=== PATIENT | male | born 1980 | race Caucasian/White ===

== ENCOUNTER → 2020-06-01 15:27 | Outpatient (CLI) | payer OTHER, SELFPAY ==
--- NOTE | ~2020-06-01 | MR_ITS ---
EXAMINATION: MR thoracic spine wo con EXAM DATE: 06/01/2020 16:04 INDICATION: Thoracic pain. TECHNIQUE: Multi-sequential, multiplanar MR images of the thoracic spine were obtained without contra st. Sagittal T1, T2, T2 fat saturation, axial T2 weighted images reviewed. There is no prior study for comparison. FINDINGS: The vertebral bodies are aligned in the AP dimension. The spinal cord signal intensity and intrinsic morphology is normal. Several hemangiomas, largest within T3. There is mild mid and lower thoracic disc disease and facet arthropathy. Thoracic central canal, neural foramen widely patent. IMPRESSION: Mild thoracic spondylosis. Reviewed, dictated and finalized at location B. [facility] [facility] IMPRESSION: Mild thoracic spondylosis.
== END ==
PROVIDERS: PCP Physician Assistant Medical; Visit Provider Physician Assistant Medical
DX: M54.6 Pain in thoracic spine (principal); M47.814 Spondylosis without myelopathy or radiculopathy, thoracic region
CPT/HCPCS: 72146

== ENCOUNTER 2023-02-21 07:34 | Day surgery (SDC) | payer OTHER, SELFPAY ==
[2023-02-21 09:01] VITALS: BMI 26.6
--- NOTE | 2023-02-21 09:18 | PM.HPGS ---
History of Present Illness History of Present Illness Consent: Risks, benefits, and alternatives have been discussed and questions answered. Patient agrees to proceed with procedure. Chief complaint: Gerd Narrative: Sukumar Andrea is a 42 year old male Presents for EGD. Patient reports over the last several years has had heartburn and acid regurgitation. He has taken omeprazole 20mg p.o. daily for some time. Earlier this year symptoms seem to intensify and he has taken 40mg p.o. daily for several months. He states initially this improved but symptoms have been inconsistent. He occasionally will have breakthrough heartburn. Patient denies any dysphagia or weight loss. He has had no bleeding. Patient presents today for EGD to assess more thoroughly. Review of Systems Review of Systems: Review of systems noncontributory. [facility] Past Medical History Medical History Anxiety Psoriasis Family History Family History Father Hypertension Family history of malignant neoplasm Lung cancer Mother Hypertension Sibling Hypertension Social History Social History Smoking packs per day: 1 Smoking cigarettes per day: 20.0 Smoking status: Current some day smoker Tobacco type: cigarettes Additional smoking assessment comments: 5 cigarettes per week Alcohol intake: current Drinks per week: 5 Substance use: never Substance use type: does not use Lack of Transportation: No Lack of Food: Never True Current Housing: I Have Housing Concerned About Future Housing: No Difficulty Paying Gas/Electric Bills: No Difficulty Paying for Meds: No Currently Unemployed: No Difficulty w/ Childcare or Family Care: No Living arrangements: with family Occupation/Education: occupation 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 Vital signs stable. HEENT exam is unremarkable. Patient is anicteric. Lungs are clear to auscultation and percussion. Heart is without murmur or extra sounds. Abdomen bowel sounds are present soft nontender with no hepatosplenomegaly. Assessment and Plan Assessment and plan (1) Dyspepsia: Code(s): R10.13 - Epigastric pain Status: Acute Assessment and Plan: Patient with dyspeptic symptoms of epigastric pain And acid regurgitation.. only partially responsive to acid suppression. Plan for EGD to assess more thoroughly. (2) GERD (gastroesophageal reflux disease): Qualifiers: Esophagitis presence: without esophagitis Qualified Code(s): K21.9 - Gastro-esophageal reflux disease without esophagitis Code(s): K21.9 - Gastro-esophageal reflux disease without esophagitis Status: Acute Assessment and Plan: Patient with symptoms of acid reflux. Symptoms are only partially responsive to PPI acid suppression. Symptoms recur intermittently. Plan for EGD to assess more thoroughly.
--- NOTE | 2023-02-21 09:28 | WPDANESEPPF ---
Anes - Initial Pre Proc Eval Procedure: Operation Date: 02/21/23 10:00 Proposed Procedures p Esophagogastroduodenoscopy - Nabil Aguilar MD Date/Time: 02/21/23 09:28 Surgeon: Nabil Aguilar MD Pre Op Diagnosis: Gerd Patient Data Age: 42 Gender: M Height: 1.85 m Weight: 91.7 kg Allergies Allergy/AdvReac Type Severity Reaction Status Date / Time No Known Allergies Allergy Verified 02/21/23 08:48 Home Medications Medication Instructions Recorded Confirmed Type omeprazole 40 mg capsule,delayed 40 mg PO DAILY #90 caps 11/09/22 02/21/23 Rx release citalopram 20 mg tablet 20 mg PO DAILY #30 tabs 02/12/23 02/21/23 Rx Patient hx anesthesia problems: none Family hx anesthesia problems: none Results Review: All pre-operative results and documents have been reviewed as part of the pre-operative evaluation. [facility] Past Medical History Medical History Anxiety Psoriasis Family History Family History Father Hypertension Family history of malignant neoplasm Lung cancer Mother Hypertension Sibling Hypertension Social History Social History Smoking packs per day: 1 Smoking cigarettes per day: 20.0 Smoking status: Current some day smoker Tobacco type: cigarettes Additional smoking assessment comments: 5 cigarettes per week Alcohol intake: current Drinks per week: 5 Substance use: never Substance use type: does not use Lack of Transportation: No Lack of Food: Never True Current Housing: I Have Housing Concerned About Future Housing: No Difficulty Paying Gas/Electric Bills: No Difficulty Paying for Meds: No Currently Unemployed: No Difficulty w/ Childcare or Family Care: No Living arrangements: with family Occupation/Education: occupation 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 [employer] Gender identity (if verbalized by the patient): Male Sexual Orientation (if Verbalized by the Patient): Straight or Heterosexual Spiritual care concerns: No Anes - Eval Final PreProcedure Day of Procedure 02/21/23 09:28 Patient weight: normal Heart: regular rate and rhythm Lungs: clear to auscultation Airway: Mallampati scale class II Neurological: alert and oriented Last oral intake: >/= 8 hours ASA classification: II Emergent: no Anesthetic plan: proceed Anesthesia type and monitoring: general GIVS and standard monitoring Results Review: All pre-operative results and documents have been reviewed as part of the pre-operative evaluation. Informed Consent: The patient's anesthetic plan and its attendant risks and benefits were discussed with the patient/family/POA. Questions were solicited and answers provided to the satisfaction of the patient/family/POA.
[2023-02-21] MEDS: LACTATED RINGERS 1,000 ML 150 ML IV CONT (09:36)
[2023-02-21 10:07] VITALS: BP 135/96; PULSE 77; RESP 20; O2SAT 100
[2023-02-21 10:17] VITALS: BP 129/93; PULSE 70; RESP 18; O2SAT 99
[2023-02-21 10:27] VITALS: BP 119/86; PULSE 65; RESP 16; O2SAT 98
--- NOTE | 2023-02-21 13:17 | WPDANESPN ---
Anes - Prog Note Post-Op Date/Time: 02/21/23 13:17 Cardiovascular status: normal Respiratory status: normal Airway patency: baseline Mental status: baseline Post-Op hydration status: normal Vital Signs: Last Vital Signs Pulse 65 02/21/23 10:27 Resp 16 02/21/23 10:27 BP 119/86 02/21/23 10:27 Pulse Ox 98 02/21/23 10:27 O2 Del Method Room Air 02/21/23 10:27 Pain Score (VAS): 0 I/O: Intake & Output 02/20/23 02/21/23 02/21/23 23:59 07:59 15:59 Intake Total 700 Balance 700 Patient Feedback: Patient satisfied with anesthetic care.
--- NOTE | 2023-02-22 08:16 | SUR.PHASEII ---
Pt called and asked for a work release for yesterday. Faxed to pt.
== END 2023-02-21 10:41 | disposition home or self-care (01) ==
PROVIDERS: PCP Physician Assistant Medical; Visit Provider Internal Medicine Gastroenterology
PROC: 0DJ08ZZ Inspection of Upper Intestinal Tract, Via Natural or Artificial Opening Endoscopic (ICD-10-PCS; CPT 43235; principal; 2023-02-21 10:00)
DX: R13.19 Other dysphagia (principal); K21.9 Gastro-esophageal reflux disease without esophagitis
CPT/HCPCS: 43239

== ENCOUNTER 2023-02-21 08:46 | Outpatient (NON) | payer OTHER, SELFPAY | END 2023-02-21 08:47 | disposition home or self-care (01) | LOC: ANHLAB 02-22 08:48 | PROVIDERS: PCP Physician Assistant Medical; Visit Provider Internal Medicine Gastroenterology | DX: K21.9 Gastro-esophageal reflux disease without esophagitis (principal) | CPT/HCPCS: 88305 ==